=== PATIENT | female | born 1990 | race Caucasian/White ===

== ENCOUNTER → 2016-10-05 | Outpatient (REF) | payer OTHER | LOC: M LAB REF 17:27 | PROVIDERS: ATTEND Advanced Practice Midwife ==

== ENCOUNTER 2016-10-08 22:43 | Outpatient (CLI) | payer OTHER ==
[~2016-10-08] VITALS: Ht 152.4 cm; Wt 84.0 kg
[2016-10-08 22:56] VITALS: BP 133/83
== END 2016-10-08 23:35 | disposition home or self-care (01) ==
LOC: M LDO 22:43
PROVIDERS: ATTEND Advanced Practice Midwife
DX: O47.1 False labor at or after 37 completed weeks of gestation (principal); Z3A.38 38 weeks gestation of pregnancy

== ENCOUNTER → 2016-10-14 | Outpatient (CLI) | payer OTHER ==
[2016-10-14 13:44] LABS: MEAN CORPUSCULAR HEMOGLOBIN 24.9 pg (27.0-33.0); MEAN CORPUSCULAR HGB CONC 32.9 g/dl (32.0-36.5); MEAN CORPUSCULAR VOLUME 75.9 fl (80.0-96.0); RED CELL DISTRIBUTION WIDTH 15.5 % (11.5-14.5); WHITE BLOOD COUNT 8.9 K/mm3 (4.0-10.0)
[2016-10-14 14:02] LABS: ALT/SGPT 13 U/L (12-78); AST/SGOT 15 U/L (15-37); BILIRUBIN,TOTAL 0.3 MG/DL (0.2-1.0); CREATININE FOR GFR 0.61 MG/DL (0.55-1.02); GLOMERULAR FILTRATION RATE > 60.0 (>60); URIC ACID 3.6 MG/DL (2.6-6.0)
[2016-10-14 14:05] LABS: CREATININE, SERUM 0.6 MG/DL (0.6-1.0)
[2016-10-14 14:21] LABS: CREATININE CLEARANCE, URINE 140.6 ML/MIN (75-115)
== END ==
LOC: M LAB 11:42
PROVIDERS: ATTEND Advanced Practice Midwife
DX: O16.3 Unspecified maternal hypertension, third trimester (principal)

== ENCOUNTER 2016-10-17 21:15 | Outpatient (CLI) | payer OTHER ==
[2016-10-17] MEDS ORDERED: PERCOCET 5MG/325MG TAB PO PRN (22:30)
== END 2016-10-17 23:40 | disposition home or self-care (01) ==
LOC: M LDO 21:15
PROVIDERS: ATTEND Specialist
DX: O26.893 Other specified pregnancy related conditions, third trimester (principal); R51 Headache; Z3A.38 38 weeks gestation of pregnancy

== ENCOUNTER 2016-10-21 10:23 | Inpatient (IN) | payer OTHER ==
[~2016-10-21] VITALS: Ht 152.4 cm; Wt 83.0 kg
[2016-10-21] VITALS (24 sets, daily range): BP systolic 96–143; BP diastolic 58–97
[2016-10-21] MEDS ORDERED: LACTATED RINGER'S 1000 ML IV STA (10:24)
[2016-10-21] MEDS ORDERED: LR 1,000 ML IV SCH (10:24)
[2016-10-21] MEDS ORDERED: VANCOMYCIN HCL 1,000 MG, VIAL MATE ADAPTER 1 EACH in D5W 250 ML IV SCH (10:30)
[2016-10-21 11:04] LABS: MEAN CORPUSCULAR HEMOGLOBIN 25.2 pg (27.0-33.0); MEAN CORPUSCULAR HGB CONC 33.5 g/dl (32.0-36.5); MEAN CORPUSCULAR VOLUME 75.2 fl (80.0-96.0); RED CELL DISTRIBUTION WIDTH 14.3 % (11.5-14.5); WHITE BLOOD COUNT 9.4 K/mm3 (4.0-10.0)
[2016-10-21] MEDS ORDERED: FENTANYL 2MCG/ML ROPIVACAINE 0.2% NACL 250 ML CADD As Ordered ONE (11:28)
[2016-10-21 11:51] LABS: ALT/SGPT 16 U/L (12-78); AST/SGOT 20 U/L (15-37); BILIRUBIN,TOTAL 0.3 MG/DL (0.2-1.0); CREATININE FOR GFR 0.66 MG/DL (0.55-1.02); GLOMERULAR FILTRATION RATE > 60.0 (>60); URIC ACID 3.8 MG/DL (2.6-6.0)
--- NOTE | 2016-10-21 12:16 | HPE ---
DATE OF ADMISSION: 10/21/2016 Juanita is a 26-year-old, 2, para 0-1-0-1. She is at 38-4/7 weeks gestation with an expected date of confinement (EDC) of 10/31/2016 based on first trimester ultrasound. She presents to labor and delivery today with report of uncomfortable contractions approximately every 3-4 minutes since 0700. She does report some scant bloody show. Denies leakage of fluid. Her fetus has been active. care was initiated at [facility] in the first trimester. course was complicated by a history of a delivery at 34 weeks gestation. She did receive Jacy injections from week 16 through week 36. She also has history of her daughter born with a congenital heart defect. This has been sent to the center for anatomy scan, which all returned normal anatomy. OBSTETRICAL HISTORY: In August 2014, at 34 weeks gestation, she had a spontaneous vaginal delivery of a 5 pound 8 ounce female. OB LABS: Blood type is A negative. Antibody screen negative. Rubella immune. VDRL nonreactive. Urine culture no growth. Hepatitis B surface antigen negative. HIV negative. Hepatitis C antibody nonreactive. Gonorrhea and chlamydia negative. She did decline all genetic serum screening markers. Gestational diabetic screening was 97 and her GBS was positive. Of note, in recent weeks, she has undergone a pre-eclamptic profile and a 24-hour urine for protein due to an isolated elevated blood pressure. Her results returned normal results. Her 24-hour urine protein on 10/14/2016 was 168.3 mg. PAST MEDICAL HISTORY: Childhood varicella. FAMILY HISTORY: ASD and VSD congenital heart defect in her daughter. FAMILY HISTORY: Noncontributory. SOCIAL HISTORY: The patient is to an active duty soldier. He is at bedside and supportive as well as a friend. She is a nonsmoker. Denies alcohol and drug use. No history of any sexually transmitted infections. She denies history of abuse - physical, sexual and emotional. ALLERGIES: - PENICILLIN - SHELLFISH PRODUCTS CURRENT MEDICATIONS: - vitamin - Fioricet for migraine headache as needed OBJECTIVE: Temperature has not been taken yet. Her blood pressure is 136/86. heart rate is 150 with moderate variability, positive accelerations, no decelerations. She is fortunato about every 2-4 minutes and they do palpate strong. Her abdomen is gravid, cephalic presentation. Estimated weight 8 pounds. Her sterile vaginal exam in the office at approximately 10:00 a.m. was 5-6 cm dilated, 100% effaced, -1 station. Membranes are intact and there was normal amount of show. ASSESSMENT: Intrauterine at 38-4/7 weeks gestation. heart rate Category I. Active labor. PLAN: Admit the patient to labor and delivery. Start GBS antibiotics for prophylaxis. Labs as ordered including a repeat pre-eclamptic profile. Out of bed ad true. IV fluid bolus. Anesthesia consult as the patient does desire an epidural for her labor coping. I do anticipate a normal spontaneous vaginal delivery.
[2016-10-21] MEDS ORDERED: EPIDURAL/PCA KEYS XX PRN (12:45)
[2016-10-21] MEDS ORDERED: ONDANSETRON 4MG/2ML VIAL (J2405) IV PRN (12:45)
[2016-10-21] MEDS ORDERED: FENTANYL/ROPIVACAINE/NACL CADD 250 ML EPIDURAL SCH (12:45)
[2016-10-21] MEDS ORDERED: NALOXONE INJ 0.4 MG/1 ML VIAL (J2310) IV PRN (12:45)
[2016-10-21] MEDS ORDERED: REFRIGERATOR IV KEYS XX PRN (12:45)
[2016-10-21] MEDS ORDERED: ePHEDrine SULFATE 25 MG/5 ML(5MG/ML) SYRINGE IV PRN (12:45)
[2016-10-21] MEDS ORDERED: EPIDURAL COMMENT XX SCH (12:45)
[2016-10-21] MEDS ORDERED: diphenhydrAMINE INJ 50MG/ML VIAL (J1200) IV PRN (12:45)
[2016-10-21] MEDS ORDERED: OXYTOCIN 30 UNITS IN 0.9% NaCl 500ML IV BAG (J2590) As Ordered ONE (14:24)
[2016-10-21 15:34] LABS: CORD GAS ABE V -6.1; CORD GAS HCO3 V 18.8 MEQ/L; CORD GAS O2 SAT V 72.6 %; CORD GAS PCO2 V 35.6 mmHg; CORD GAS PH V 7.341 UNITS; CORD GAS PO2 V 30.5 mmHg; CORD GAS TCO2 V 19.9 MEQ/L
[2016-10-21 15:37] LABS: CORD GAS ABE A -6.5; CORD GAS HCO3 A 22.8 MEQ/L; CORD GAS O2 SAT A 16.7 %; CORD GAS PCO2 A 63.5 mmHg; CORD GAS PH A 7.173 UNITS; CORD GAS PO2 A 27.7 mmHg; CORD GAS SBC A 17.5 MEQ/L; CORD GAS TCO2 A 24.7 MEQ/L
[2016-10-21] MEDS ORDERED: OXYTOCIN DRIP 30 UNITS in APPROPRIATE DILUENT 1 EA IV SCH (15:49)
[2016-10-21] MEDS ORDERED: ANUSOL HC CREAM 30GM TOP PRN (16:00)
[2016-10-21] MEDS ORDERED: DIBUCAINE 1% OINTMENT 30GM TOP PRN (16:00)
[2016-10-21] MEDS ORDERED: ACETAMINOPHEN 500 MG TAB PO PRN (16:00)
[2016-10-21] MEDS ORDERED: MEASLES,MUMPS,RUBELLA VACCINE INJ (MMR-II) (90707) SC SCH (16:00)
[2016-10-21] MEDS ORDERED: RHOGAM 300 MCG (1500 IU) INJ (J2790) IM SCH (16:00)
[2016-10-21] MEDS ORDERED: DOCUSATE SODIUM 100 MG CAP PO PRN (16:00)
--- NOTE | 2016-10-21 16:26 | DN ---
DATE: 10/21/2016 Juanita is a 26-year-old 2, para 1-1-0-2 now, who was admitted to labor and delivery in active labor. She had heart rate category 2 throughout second stage of labor. Fully dilated at 1454 and pushed to a normal spontaneous vaginal delivery of a live male infant in occiput anterior (OA) position with restitution to left occipital left occiput transverse (LOT) position at 1516. There was no nuchal cord. Lefors shoulders delivered with gentle downward traction and corpus immediately followed. was placed on maternal abdomen crying and active. His mouth and nares were bulb suctioned. The cord was clamped times two and cut by the father of the baby. Cord gases and cord blood were obtained. A spontaneous expulsion of an intact placenta with three-vessel cord by Lambert mechanism was at 1522. Uterine hemostasis achieved with uterine fundal massage and IV Pitocin rapid infusion. Estimated blood loss 400 mL. Perineum and vagina inspected and noted to have a perineal laceration. The laceration was repaired with 3-0 Rapide in the usual fashion. male, scores of 8 and 9, weight is pending at this time. Mother plans to breastfeed her son and the family have named him Aguilar. At the close of delivery, lap counts, needle counts and instrument counts were correct and verified.
[2016-10-21] MEDS: IBUPROFEN 800 MG TAB PO PRN (21:19)
[2016-10-22 05:38] VITALS: BP 105/56
[2016-10-22] MEDS: IBUPROFEN 800 MG TAB PO PRN ×2 (08:21→16:25)
[2016-10-22] MEDS: PRENATAL VITAMIN TAB PO SCH (08:21)
[2016-10-22 18:20] VITALS: BP 118/77
[2016-10-23] MEDS: IBUPROFEN 800 MG TAB PO PRN (04:35)
[2016-10-23 06:10] VITALS: BP 135/94
[2016-10-23] MEDS: PRENATAL VITAMIN TAB PO SCH (09:03)
[2016-10-23] MEDS ORDERED: ACET50TA PO (16:34)
[2016-10-23] MEDS ORDERED: PRENTAB9 PO (16:34)
[2016-10-23] MEDS ORDERED: IBUP-1114 PO (16:35)
== END 2016-10-23 17:45 | disposition home or self-care (01) | DRG 775 ==
LOC: M LDI 10:23 → M OBS 17:33
PROVIDERS: ADMIT Advanced Practice Midwife; ATTEND Advanced Practice Midwife
PROC: 10E0XZZ Delivery of Products of Conception, External Approach (ICD-10-PCS; principal; 2016-10-21)
PROC: 0HQ9XZZ Repair Perineum Skin, External Approach (ICD-10-PCS; 2016-10-21)
DX: O70.0 First degree perineal laceration during delivery (principal); Z37.0 Single live birth; Z3A.38 38 weeks gestation of pregnancy; Z87.51 Personal history of pre-term labor

== ENCOUNTER → 2018-01-24 | Outpatient (REF) | payer OTHER ==
[2018-01-24 18:26] LABS: ALBUMIN 4.2 GM/DL (3.2-5.2); ALBUMIN/GLOBULIN RATIO 1.31 (1.00-1.93); ALKALINE PHOSPHATASE 68 U/L (45-117); ALT/SGPT 17 U/L (12-78); ANION GAP 7 MEQ/L (8-16); AST/SGOT 10 U/L (7-37); BILIRUBIN,TOTAL 0.4 MG/DL (0.2-1.0); BLOOD UREA NITROGEN 14 MG/DL (7-18); CALCIUM LEVEL 8.9 MG/DL (8.5-10.1); CARBON DIOXIDE LEVEL 27 MEQ/L (21-32); CHLORIDE LEVEL 109 MEQ/L (98-107); CREATININE FOR GFR 0.78 MG/DL (0.55-1.30); GLOMERULAR FILTRATION RATE > 60.0 (>60); GLUCOSE, FASTING 92 MG/DL (70-100); POTASSIUM SERUM 4.2 MEQ/L (3.5-5.1); SODIUM LEVEL 143 MEQ/L (136-145); TOTAL PROTEIN 7.4 GM/DL (6.4-8.2)
== END ==
LOC: M SFHCLERA 14:01
DX: F41.9 Anxiety disorder, unspecified (principal)

== ENCOUNTER → 2018-09-07 | Outpatient (CLI) | payer OTHER ==
[~2018-09-07] MED LIST: IBUP-1114 PO; MAPA500T17 PO; PRENTAB9 PO
--- NOTE | 2018-09-07 13:02 | REP ---
PELVIS SINGLE VIEW: There is no evidence of an acute fracture, dislocation or intrinsic bone disease. IMPRESSION: No fracture or dislocation. Electronically Signed by Denilson Cisneros MD 09/07/2018 04:10 P
--- NOTE | 2018-09-07 13:04 | REP ---
SACRUM AND COCCYX, THREE VIEWS: AP and lateral views of the sacrum and coccyx demonstrate no evidence of acute fracture, dislocation or intrinsic bone disease. Impression: No fracture or dislocation. Electronically Signed by Denilson Cisneros MD 09/07/2018 04:12 P
== END ==
LOC: M LRY 11:30
PROVIDERS: ATTEND Physician Assistant Medical
DX: M53.3 Sacrococcygeal disorders, not elsewhere classified (principal); W10.8XXA Fall (on) (from) other stairs and steps, initial encounter; Y92.9 Unspecified place or not applicable
CPT/HCPCS: 72170; 72220; G0463